=== PATIENT | male | born 1950 | race Caucasian/White ===

== ENCOUNTER 2019-10-04 15:02 | Outpatient (CLI) | payer OTHER, SELFPAY ==
--- NOTE | ~2019-10-04 | CT_ITS ---
EXAMINATION: CT lung screening DATE: 10/04/2019 15:30 INDICATION: History of nicotine dependence TECHNIQUE: Computed tomography (CT) of the chest was performed without intravenous contrast. The dose -length product was 104.39 mGy-cm. Automated exposure control and iterative reconstruction technique were employed. COMPARISON: CT dated 08/16/2018 FINDINGS: No thoracic lymphadenopathy. Heart size normal. No significant pleural or pericardial effus ion. Fatty infiltration of the liver. Mild atherosclerosis. There is emphysema. No endobronchial lesi ons. There is focal peripheral scarring in the right middle lobe, image 69, unchanged no suspicious p ulmonary nodules or masses. No endobronchial lesions. No osteolytic or osteoblastic lesions of the agustin chasidy. Mild thoracic spondylosis. There is diffuse idiopathic skeletal hyperostosis (DISH) of the thora cic spine. . IMPRESSION: 1. Lung-RADS category 1: Negative. Continue annual screening with noncontrast low-dose chest CT in 12 months. Reviewed, dictated and finalized at location A. IMPRESSION: 1. Lung-RADS category 1: Negative. Continue annual screening with noncontrast l ow-dose chest CT in 12 months.
== END 2019-10-04 15:03 | disposition home or self-care (01) ==
LOC: ANHIMG 15:04
PROVIDERS: Visit Provider Internal Medicine
DX: Z12.2 Encounter for screening for malignant neoplasm of respiratory organs (principal); Z87.891 Personal history of nicotine dependence
CPT/HCPCS: G0297

== ENCOUNTER 2019-12-21 06:49 | Outpatient (NON) | payer OTHER, SELFPAY ==
[2019-12-22 01:03] LABS: SARS-CoV-2 RNA PCR Negative
== END 2019-12-21 06:50 ==
LOC: ANHCOVIDDT 06:49
PROVIDERS: Visit Provider Internal Medicine
DX: Z20.828 Contact with and (suspected) exposure to other viral communicable diseases (principal); R05 Cough
CPT/HCPCS: 87635; C9803; U0003

== ENCOUNTER 2020-01-14 10:18 | Outpatient (CLI) | payer OTHER, SELFPAY ==
--- NOTE | ~2020-01-14 | XR_ITS ---
EXAMINATION: XR soft tissue neck DATE: 01/14/2020 10:43 INDICATION: Gastroesophageal reflux disease without esophagitis. TECHNIQUE: 2 views of the neck soft tissues were obtained. COMPARISON: None. FINDINGS: The adenoids, palatine tonsils, epiglottis, prevertebral soft tissues, and airway are bryce l. IMPRESSION: 1. Normal neck soft tissues. Reviewed, dictated and finalized at location B. MECHANIC APPRENTICE
== END 2020-01-14 10:19 | disposition home or self-care (01) ==
LOC: ANHIMG 10:24
PROVIDERS: Visit Provider Internal Medicine
DX: K21.9 Gastro-esophageal reflux disease without esophagitis (principal)
CPT/HCPCS: 70360

== ENCOUNTER 2020-01-18 08:51 | Outpatient (CLI) | payer OTHER, SELFPAY ==
--- NOTE | ~2020-01-18 | XR_ITS ---
EXAMINATION: XR barium swallow modified DATE: 01/18/2020 09:20 INDICATION: Dysphagia. TECHNIQUE: The patient was given barium-containing material of multiple consistencies to swallow by tarcy cheng speech pathologist while I performed fluoroscopy. Dose-area product was 1.117 Gy-cm2. 1.5 minutes fluoroscopy time FINDINGS: Oral Stage: Normal Pharyngeal Phase: Normal Cervical/Esophageal Stage: Normal IMPRESSION: Modified esophagram findings as above. Please refer to the speech therapy report for spec [facility] recommendations. Reviewed, dictated and finalized at Location A. Reviewed, dictated and finalized at location A. E MACHINE HEATER IMPRESSION: Modified esophagram findings as above. Please refer to the speech t herapy report for specific recommendations.
--- NOTE | 2020-01-18 11:09 | STOPEVAL ---
MODIFIED BARIUM SWALLOW EVALUATION: Thank you for referring Lavon Dillard to [facility].? Attending Provider: Phani Allen MD * Outpatient Evaluation Start: 01/18/20 11:02 Freq: Status: Active Protocol: Document 01/18/20 11:02 BECHERERT (Rec: 01/18/20 11:08 BECHERERT [email or web address]) Therapy Assessment Status Assessment Status Assessment Status Evaluation Outpatient Past Medical History Gastrointestinal History Hx Gastroesophageal Reflux Disease Yes Prior Level of Function Prior Swallow Level Prior Intake Method Oral Prior Diet Regular (Level 7 Diet) Prior Liquid Consistency Thin (Level 0 Diet) Pain Assessment Timing of Pain Assessment Timing of Pain Assessment Assessment Self Report Self Report Pain Level 0 Pain Score Pain Score 0: Self Report Modified Barium Swallow Evaluation Recent Swallowing History Reports Dysphagia Yes: excessive belching; soreness in throat/upper chest Onset of Dysphagia 2 weeks ago History of Dysphagia No Other Factors Impacting Dysphagia None History of Pneumonia No Reported Difficult Consistencies Unable to Identify Intake Method Prior to Swallow Oral Evaluation Diet Prior to Swallow Evaluation Regular, Level 7 Liquid Consistency Prior to Swallow Thin (0) Evaluation Consistency Thin Uncontrolled 2 Method of Presentation Straw Oral Preparatory Symptoms None Oral Phase Symptoms None Pharyngeal Phase Symptoms Within Functional Limits Severity of Vallecular Residue None - 0% No Residue Severity of Pyriform Sinus Residue None - 0% No Residue 8 Point Laryngeal Penetration-Aspiration Material Enters the Airway, Scale Remains Above Vocal Folds, is Ejected Cervical/Esophageal Symptoms None Solid Consistency Other Amount cracker Method of Presentation Spoon Oral Preparatory Symptoms None Oral Phase Symptoms None Pharyngeal Phase Symptoms None Severity of Vallecular Residue None - 0% No Residue Severity of Pyriform Sinus Residue None - 0% No Residue 8 Point Laryngeal Penetration-Aspiration Material Does Not Enter Airway Scale Cervical/Esophageal Symptoms None Mixed Consistency Method of Presentation Spoon Oral Preparatory Symptoms None Oral Phase Symptoms None Pharyngeal Phase Symptoms None Severity of Vallecular Residue None - 0% No Residue Severity of Pyriform Sinus Residue None - 0% No Residue 8 Point Laryngeal Penetration-Aspiration Material Does Not Enter Airway Scale Cervical/Esophageal Symptoms None Pureed Consistency Method of Presentation
== END 2020-01-18 08:52 | disposition home or self-care (01) ==
PROVIDERS: Visit Provider Internal Medicine
DX: K21.9 Gastro-esophageal reflux disease without esophagitis (principal)
CPT/HCPCS: 92611

== ENCOUNTER 2020-02-13 08:23 | Outpatient (CLI) | payer OTHER, SELFPAY ==
--- NOTE | ~2020-02-13 | US_ITS ---
US arterial ankle brachial ind INDICATION: Differing leg pressures. Peripheral vascular disease. TECHNIQUE: Segmental pressures and plethysmographic and Doppler waveforms of the brachial and lower e xtremity arteries were obtained. COMPARISON: None. FINDINGS: Right and left brachial artery pressures of 145 mm Hg and 140 mm Hg, respectively, are concordant (no rmal difference <= 30 mmHg). The right ankle-brachial index (AGUSTINA) is 0.99 (normal >= 0.9-1.0). The right great toe-brachial index (TBI) is 0.49 (normal >= 0.60). The left AGUSTINA is 1.17. The left TBI is 0.46. IMPRESSION: 1. Diminished bilateral toe brachial indices consistent with mild peripheral arterial disease. Reviewed, dictated and finalized at location A. NE DIESEL TECHNICIAN IMPRESSION: 1. Diminished bilateral toe brachial indices consistent with mild peripheral ar terial disease.
== END 2020-02-13 08:24 | disposition home or self-care (01) ==
PROVIDERS: Visit Provider Internal Medicine
DX: R68.89 Other general symptoms and signs (principal); R94.39 Abnormal result of other cardiovascular function study
CPT/HCPCS: 93922

== ENCOUNTER 2021-05-18 07:58 | Outpatient (CLI) | payer OTHER, SELFPAY ==
--- NOTE | ~2021-05-18 | XR_ITS ---
EXAMINATION: XR abdomen/kub 1V INDICATION: Left-sided back pain TECHNIQUE: Supine views of the abdomen were obtained on 2 radiographs. COMPARISON: 09/10/2013 FINDINGS: A 7 mm calcification projects in the expected location of the left ureteropelvic junction. Three calcifications measuring up to 3 mm project in the left kidney. Three calcifications measuring up to 2 mm project in the right kidney. There is mild osteoarthritis of the hips. The bowel gas patte rn is normal. IMPRESSION: 1. 7 mm stone projecting in the expected location of the left ureteropelvic junction. 2. Bilateral nephrolithiasis. Reviewed, dictated and finalized at location A. IMPRESSION: 1. 7 mm stone projecting in the expected location of the left ureteropelvic dimas ction. 2. Bilateral nephrolithiasis.
[2021-05-18 09:00] LABS: Appearance Urine Clear (Clear); Bilirubin Urine Negative (Negative); Color Urine Yellow (Yellow); Glucose Urine UA Trace mg/dL (Negative); Ketones Urine Negative (Negative); Leukocyte Esterase Ur Negative LEU/UL (Negative); Nitrate Urine Negative (Negative); Protein Urine Negative (Negative); Urobilinogen Urine 0.2 mg/dL (<2.0); pH Urine 6.5 (5.0-9.0)
[2021-05-18 09:01] LABS: Add Urine Microscopic? YES; Blood Urine Trace-Intact (Negative)
[2021-05-18 09:25] LABS: Bacteria Urine Trace /hpf; Mucus Urine Rare /lpf; RBC Urine 0-2 /hpf (0-2); WBC Urine 0-3 /hpf
== END 2021-05-18 07:59 | disposition home or self-care (01) ==
LOC: ANHIMG 08:01
PROVIDERS: Visit Provider Internal Medicine
DX: M54.50 Low back pain, unspecified (principal); N20.0 Calculus of kidney; N20.1 Calculus of ureter
CPT/HCPCS: 74018; 81001

== ENCOUNTER 2021-05-25 08:46 | Outpatient (CLI) | payer OTHER, SELFPAY ==
--- NOTE | 2021-05-25 09:00 | ECG_ITS ---
Measurements Intervals [place] Rate: 69 P: 58 MO: 183 QRS: 22 QRSD: 149 T: 24 QT: 406 QTc: 437 Interpretive Statements SINUS RHYTHM RIGHT BUNDLE BRANCH BLOCK [120+ ms QRS DURATION, UPRIGHT V1, 40+ ms S IN I/aVL/V4/V5/V6] NONSPECIFIC ST ABNORMALITY BORDERLINE ECG NO PREVIOUS ECG AVAILABLE FOR COMPARISON Electronically Signed On 05-25-2021 11:32:00 CDT by Evans Key M.D.
[2021-05-25 09:39] LABS: Anion Gap 4 mmol/L (8-16); Blood Urea Nitrogen 16 mg/dL (9-20); Calcium 8.7 mg/dL (8.4-10.2); Carbon Dioxide 30 mmol/L (22-30); Chloride 105 mmol/L (98-107); Estimated Glomerular Filt Rate > 60; Glucose 106 mg/dL (65-110); Potassium 4.2 mmol/L (3.4-5.0); Prothrombin Time 12.6 Seconds (11.1-14.7); Sodium 139 mmol/L (137-145)
[2021-05-25 09:40] LABS: Partial Thromboplastin Time 25.5 SECONDS (22.3-36.8)
== END 2021-05-25 08:47 | disposition home or self-care (01) ==
LOC: ANHSURGERY 08:48
PROVIDERS: Anesthesiology; Visit Provider Urology
DX: Z01.818 Encounter for other preprocedural examination (principal); E78.5 Hyperlipidemia, unspecified; N20.1 Calculus of ureter; E11.9 Type 2 diabetes mellitus without complications; R94.31 Abnormal electrocardiogram [ECG] [EKG]
CPT/HCPCS: 36415; 80048; 85610; 85730; 87086; 87088; 93005

== ENCOUNTER 2021-05-29 01:16 | Day surgery (SDC) | payer OTHER, SELFPAY ==
[2021-05-22 09:18] VITALS: BMI 28.5
--- NOTE | 2021-05-22 09:36 | PC.NURSE ---
Report to the Outpatient Waiting Room, entrance under the green pavilion located off [facility], at time _9:30AM on date __05/29/21 . OR Time: ___11:30AM . - You and your visitor will be asked a series of questions to screen for COVID 19 for your protection. - A mask is required within the hospital. Preoperative COVID Testing Requirements: No COVID Test needed if: (proof is required; if not received patient will have Rapid Test prior to entry) - Patient has received COVID Vaccine at least 14 days prior to procedure date or - Patient has positive COVID test result within last 90 days of surgery date. COVID Test needed if above criteria is not met If not COVID vaccinated a COVID test must be conducted within 72 hours of surgery and patient is asked to isolate self from time of testing until procedure. You will go to the [facility] for your COVID testing. The [facility] site is located at the corner of [address] [facility]. You will only be called if COVID results are positive and your surgeon may reschedule your elective surgery date. Patients may have clear liquids (water, carbonated beverages, clear teas, apple juice) until 3 hours prior to surgery with a maximum of 20 ounces. - No food from midnight until time of surgery - Infants may have breast milk until 4 hours before surgery, formula 6 hours prior to surgery. - Children will be allowed to drink immediately following surgery. If applicable, please bring a bottle or sippy cup to assist with drinking. Juice, water, soda, and popsicles are readily available. For infants on formula, please bring formula the day of surgery. Pacifiers are allowed. Take the following medications with a SIP of water the morning of surgery: __NONE Medications to discontinue per physician HOLD ASPIRIN 7 DAYS PRE-OP Date to take last dose____4/15/22 Please no make-up, nail kenyan, hairspray, perfume, deodorant, or body powder the day of surgery. No jewelry (including any body piercings) or valuables the day of surgery, leave them at home. Please take a shower or bath the night before, or the morning of, surgery with an antibacterial soap. Wear comfortable, loose fitting clothing. Children are encouraged to wear pajamas. - Jewelry must be removed prior to entering the operating room. Rings and piercings that are not removed may be cut off. - The hospital will not accept responsibility for valuables. - Please leave all valuables, including medications, at home the day of surgery. If you are going home after surgery, a licensed hazardous materials tanker driver must drive you home. - NO public transportation without another adult. - We recommend that an adult stay with you for 24 hours following discharge. - We also recommend that you do not drive, make important decision, drink alcoholic beverages, or take any drugs that were not prescribed by your health care provider for at least 24 hours after your discharge time. For Pediatric surgeries, we recommend two adults accompany the child home (only one inside the building at this time). One visitor will be allowed to accompany the patient into the hospital. Patients visitor will be instructed to remain with patient at all times or leave the building. We will allow the visitor to come back to the postoperative area when patient is ready. Follow any additional instructions given to you from your surgeon. Telephone instructions given to __PATIENT and asked if any additional questions and then verbalized understanding. Patient advised to call surgeon office or pre surgery nurse liaison [phone] if any additional questions.
--- NOTE | 2021-05-28 13:37 | WPDANESEPPF ---
Anes - Initial Pre Proc Eval Procedure: Operation Date: 05/29/21 10:30 Proposed Procedures p Left Extracorporeal Shock Wave Lithotripsy - Augusto Harrington MD Date/Time: 05/28/21 13:37 Surgeon: Augusto Harrington MD Pre Op Diagnosis: Left Ureteral Stone Patient Data Age: 71 Gender: M Height: 1.73 m Weight: 85 kg Allergies Allergy/AdvReac Type Severity Reaction Status Date / Time No Known Allergies Allergy Verified 05/22/21 09:15 Home Medications Medication Instructions Recorded Confirmed Type aspirin 81 mg tablet,delayed 81 mg PO DAILY 02/25/20 05/22/21 History release metformin 1,000 mg tablet 1,000 mg PO BID #180 tablet 02/28/20 05/22/21 Rx rosuvastatin 40 mg tablet 40 mg PO DAILY #90 tablet 02/28/20 05/22/21 Rx famotidine 20 mg tablet 20 mg PO BID #180 tablet 10/07/20 05/22/21 Rx acetaminophen [Acetaminophen Extra 500 mg PO Q6H PRN 05/22/21 05/22/21 History Strength] hydrocodone-acetaminophen 1 tablet PO Q4-6H PRN 05/22/21 05/22/21 History Patient hx anesthesia problems: none Family hx anesthesia problems: none Results Review: All pre-operative results and documents have been reviewed as part of the pre-operative evaluation. [facility] Past Medical History Medical History (Updated 05/28/21 @ 13:37 by Albin Encarnacion DO) Abnormal ankle brachial index (AGUSTINA) Abnormal EKG BMI 28.0-28.9,adult BMI 29.0-29.9,adult Cough Diabetes type 2, controlled Encounter for routine adult health examination without abnormal findings Encounter for special screening examination for neoplasm of prostate Exposure to COVID-19 virus GERD (gastroesophageal reflux disease) Personal history of nicotine dependence PVD (peripheral vascular disease) Vitamin D deficiency Family History Family History Father Family history of diabetes mellitus in first degree relative Family history of heart disease in male family member before age 55 Diabetes mellitus Family history of cardiovascular disease Social History Social History Smoking packs per day: 1 Smoking cigarettes per day: 20.0 Years smoked: 50 Smoking pack-years: 50.00 Smoking status: Current every day smoker Tobacco type: cigarettes Alcohol intake: never Substance use: never Living arrangements: with family Additional living arrangements comments: Gender identity (if verbalized by the patient): Male Sexual Orientation (if Verbalized by the Patient): Straight or Heterosexual Spiritual care concerns: No Anes - Eval Final PreProcedure Day of Procedure 05/28/21 13:37 Patient weight: overweight Heart: regular rate and rhythm Lungs: clear to auscultation and normal air movement Airway: Mallampati scale class II Neurological: alert and oriented Last oral intake: >/= 8 hours ASA classification: III Emergent: no Anesthetic plan: proceed Anesthesia type and monitoring: general LMA and standard monitoring Results Review: All pre-operative results and documents have been reviewed as part of the pre-operative evaluation. Informed Consent: The patient's anesthetic plan and its attendant risks and benefits were discussed with the patient/family/POA. Questions were solicited and answers provided to the satisfaction of the patient/family/POA.
[2021-05-29] VITALS (7 sets, daily range): BP systolic 128–145; BP diastolic 73–88; PULSE 75–107; RESP 16–20; TEMP 36.4; O2SAT 95–99
--- NOTE | ~2021-05-29 | XR_ITS ---
EXAMINATION: XR abdomen/kub 1V EXAM DATE: 05/29/2021 07:38 INDICATION: ESWL TECHNIQUE: Frontal projection(s) of the abdomen for interpretation. Comparison is made to prior exami nation from . FINDINGS: There is approximately 8 mm stone in expected location of the left ureteropelvic junction w ell visualized. Likely additional small bilateral nephrolithiasis. Mild to moderate bony degenerative changes. Nonobstructive bowel gas pattern. There is no organomegaly. IMPRESSION: Left UPJ stone. Smaller bilateral nephrolithiasis. Reviewed, dictated and finalized at location A.
[2021-05-29] MEDS: LACTATED RINGERS 1,000 ML 30 ML IV CONT ×2 (08:00→10:31)
[2021-05-29 08:29] LABS: Glucose Point of Care 132 mg/dl (65-105)
--- NOTE | 2021-05-29 09:10 | WPDHPUPDATE1 ---
History and Physical Update Update Date/Time: 05/29/21 09:10 History and Physical has been reviewed, including an updated exam of the patient. There are NO changes in the patient's condition. Risks, benefits, and alternatives have been discussed and questions answered. Patient agrees to proceed with procedure. Proceed with lithotripsy of left UPJ calculus
[2021-05-29] MEDS: ceFAZolin 2 GM/D5W 50 ML 2 GM/50 ML BAG IVPB (09:33)
--- NOTE | 2021-05-29 10:08 | W.PM.PROC2 ---
Procedure Note - Detailed Date of Procedure 05/29/21 Pre-op Diagnosis Left Ureteral Stone Post-op Diagnosis Same Procedure Performed Lithotripsy of left ureteral calculus Surgeon Augusto Harrington MD Anesthesia General Description of Procedure Patient is taken to the operative suite correctly identified. Once anesthesia was obtained the stone was localized in both planes. Three thousand shocks were given the stone. Patient tolerated procedure well without any complications and was taken recovery stable condition. He will follow up in 7-10 days with KUB. Drains No Packing No Pathology None sent Complications No immediate complications Condition Stable Disposition PACU
[2021-05-29 10:24] LABS: Glucose Point of Care 119 mg/dl (65-105)
[2021-05-29] MEDS: fentaNYL CITRATE INJ (*CRX) 100 MCG/2 ML VIAL 25 MCG IV PUSH ×2 (10:38→10:42)
== END 2021-05-29 11:45 | disposition home or self-care (01) ==
PROVIDERS: Visit Provider Urology
PROC: (CPT 50590; principal; 2021-05-29 09:30)
DX: N20.1 Calculus of ureter (principal); Z79.82 Long term (current) use of aspirin; Z79.84 Long term (current) use of oral hypoglycemic drugs; E11.9 Type 2 diabetes mellitus without complications; Z86.16 Personal history of COVID-19; K21.9 Gastro-esophageal reflux disease without esophagitis; E55.9 Vitamin D deficiency, unspecified; I73.9 Peripheral vascular disease, unspecified; R94.31 Abnormal electrocardiogram [ECG] [EKG]; F17.210 Nicotine dependence, cigarettes, uncomplicated
CPT/HCPCS: 50590; 36415; 74018; 80048; 82948; 85610; 85730; 87086; 93005; A9270; J0690; J1100; J2405; J2704; J3010; J7120

== ENCOUNTER 2021-06-06 07:22 | Outpatient (CLI) | payer OTHER, SELFPAY ==
--- NOTE | ~2021-06-06 | XR_ITS ---
XR abdomen/kub 1V DATE: 06/06/2021 07:40 INDICATION: Left ureteral calculus follow-up TECHNIQUE: AP rejection, 2 views COMPARISON: 05/29/2021 KUB FINDINGS: There is a linear array of calcified stones at the left ureterovesical junction measuring 1 .5 cm length, the individual stones measuring as much as proxy 4 mm maximal dimension, including the most distal stone. These are apparently fragments from prior left ureteropelvic junction approximatel y 8 mm calcified stone noted on 05/29/2021. At least several calcified calculi of the mid and lower right kidney. IMPRESSION: Left ureterovesical junction [address] Reviewed, dictated and finalized at Location A. Reviewed, dictated and finalized at location A.
== END 2021-06-06 07:23 | disposition home or self-care (01) ==
PROVIDERS: Visit Provider Nurse Practitioner Family
DX: N20.1 Calculus of ureter (principal)
CPT/HCPCS: 74018

== ENCOUNTER 2021-06-13 07:24 | Outpatient (CLI) | payer OTHER, SELFPAY ==
--- NOTE | ~2021-06-13 | XR_ITS ---
EXAMINATION: XR abdomen/kub 1V INDICATION: Left ureteral stone, recent lithotripsy TECHNIQUE: Supine views of the abdomen were obtained on 2 radiographs. COMPARISON: 06/06/2021 FINDINGS: Stones previously described at the left ureterovesicular junction/distal ureter are no long er evident. There is stable punctate right nephrolithiasis. No stones are identified along the expect ed courses of the ureters or within the urinary bladder. There is a phlebolith of the left pelvis. Th e bowel gas pattern is normal. There is moderate osteoarthritis of the hips. IMPRESSION: 1. Interval treatment of previously described left ureterovesicular junction/distal ureteral stones. 2. Right nephrolithiasis. Reviewed, dictated and finalized at location A. IMPRESSION: 1. Interval treatment of previously described left ureterovesicular junction/di stal ureteral stones. 2. Right nephrolithiasis.
== END 2021-06-13 07:25 | disposition home or self-care (01) ==
PROVIDERS: Visit Provider Urology
DX: N20.0 Calculus of kidney (principal)
CPT/HCPCS: 74018

== ENCOUNTER 2021-08-14 06:56 | Outpatient (CLI) | payer OTHER, SELFPAY ==
[2021-08-14 07:53] LABS: Appearance Urine Clear (Clear); Bilirubin Urine Negative (Negative); Blood Urine Negative (Negative); Color Urine Yellow (Yellow); Glucose Urine UA Trace mg/dL (Negative); Ketones Urine Negative (Negative); Leukocyte Esterase Ur Negative LEU/UL (NEGATIVE); Nitrate Urine Negative (Negative); Protein Urine 2+ mg/dL (Negative); Urobilinogen Urine 0.2 mg/dL (<2.0)
[2021-08-14 07:54] LABS: Basophils Absolute Auto 0.1 K/mm3 (0.0-0.1); Basophils Percent Auto 0.8 % (0.2-1.2); Eosinophils Absolute Auto 0.2 K/mm3 (0-0.3); Eosinophils Percent Auto 1.8 % (0-4.4); Hematocrit 45.5 % (42.0-52.0); Immature Granulocyte Absolute 0.03 K/mm3 (0.00-0.031); Immature Granulocyte Percent A 0.4 % (0-0.5); Lymphocytes Absolute Auto 1.23 K/mm3 (0.9-3.2); Lymphocytes Percent Auto 14.5 % (18.3-44.2); Mean Corpuscular Hemoglobin 30.8 pg (26-34); Mean Corpuscular Volume 93.4 fl (80-100); Mean Platelet Volume 10.6 fl (7.4-10.4); Monocytes Absolute Auto 0.6 K/mm3 (0.1-0.6); Monocytes Percent Auto 6.6 % (2.6-8.5); Neutrophils Absolute Auto 6.4 K/mm3 (1.3-6.7); Neutrophils Percent Auto 75.9 % (45.5-73.1); Platelet Count Result 256 k/mm3 (150-375); Red Blood Count 4.87 M/mm3 (4.6-6.20); Red Cell Distribution Width 12.3 % (11.5-14.5); White Blood Count 8.5 K/mm3 (4.5-10.0)
[2021-08-14 07:58] LABS: Hemoglobin A1C 6.1 % (<5.7)
[2021-08-14 08:03] LABS: Alanine Aminotransferase 48 U/L (6-50); Alkaline Phosphatase 64 U/L (38-126); Anion Gap 5 mmol/L (8-16); Aspartate Amino Transferase 38 U/L (17-59); Bilirubin,Total 0.6 mg/dL (0.2-1.3); Blood Urea Nitrogen 14 mg/dL (9-20); Calcium 8.7 mg/dL (8.4-10.2); Carbon Dioxide 25 mmol/L (22-30); Chloride 108 mmol/L (98-107); Cholesterol 153 mg/dL (0-200); Estimated Glomerular Filt Rate > 60; Glucose 136 mg/dL (65-110); HDL Direct 34 mg/dL; Potassium 4.3 mmol/L (3.4-5.0); Sodium 138 mmol/L (137-145); Triglycerides 130 mg/dL (<150)
[2021-08-14 08:09] LABS: Mucus Urine Rare /lpf; RBC Urine 0-2 /hpf (0-2); WBC Urine 0-3 /hpf (0-3)
[2021-08-14 08:14] LABS: LDL Cholesterol Direct 88 mg/dL
[2021-08-14 08:17] LABS: Add Urine Microscopic? YES
[2021-08-14 15:06] LABS: Free T4 Free Thyroxine 1.17 ng/mL (0.78-2.19)
[2021-08-18 21:04] LABS: Apolipoprotein B 98 mg/dL (<90)
== END 2021-08-14 06:57 | disposition home or self-care (01) ==
LOC: ANHLAB 06:58
PROVIDERS: Visit Provider Internal Medicine
DX: E55.9 Vitamin D deficiency, unspecified (principal); E78.5 Hyperlipidemia, unspecified; R68.89 Other general symptoms and signs; Z79.899 Other long term (current) drug therapy; R73.9 Hyperglycemia, unspecified
CPT/HCPCS: 36415; 80053; 80061; 81001; 82172; 82306; 83036; 84439; 84443; 85025

== ENCOUNTER 2021-11-26 07:04 | Emergency (ER) | payer OTHER, SELFPAY ==
--- NOTE | ~2021-11-26 | XR_ITS ---
EXAMINATION: XR knee LT 3V DATE: 11/26/2021 07:49 INDICATION: Twisting injury to left knee with anterior protrusion and discoloration TECHNIQUE: Anteroposterior, oblique and crosstable lateral views of the left knee were obtained COMPARISON: None. FINDINGS: Arcuate sign with nondisplaced avulsion fracture at the proximal tip of the fibula. Alignment is othe rwise normal. No other fractures identified. Soft tissues are unremarkable. Left knee joint effusion. IMPRESSION: 1. Arcuate sign with nondisplaced avulsion fracture at the proximal tip of the fibula. These are freq uently seen in setting of additional internal derangement including anterior or posterior cruciate li gament tears and posterolateral corner injuries which can predispose towards posterolateral instabili ty. Reviewed, dictated and finalized at location A. IMPRESSION: 1. Arcuate sign with nondisplaced avulsion fracture at the proximal tip of the fibula. These are frequently seen in setting of additional internal derangement including anterior or posterior cruciate ligament tears and posterolateral cor ner injuries which can predispose towards posterolateral instability.
[2021-11-26 07:18] VITALS: BP 151/82; PULSE 93; RESP 16; TEMP 36.4; O2SAT 98
--- NOTE | 2021-11-26 07:19 | ED.LOWEXIN ---
HPI - Extremity Injury (Lower) General Chief Complaint: Extremity Injury, Lower Stated Complaint: fall with left leg inury Time Seen by Provider: 11/26/21 07:18 Source: patient Mode of arrival: ambulatory Limitations: no limitations History of Present Illness HPI Narrative: Patient tripped and fell yesterday around noon woke up this morning feeling tightness and discomfort of the left knee. He denies any other complaint. Related Data Home Medications Medication Instructions Recorded Confirmed aspirin 81 mg tablet,delayed 81 mg PO DAILY 02/25/20 08/20/21 release (Adult Aspirin Regimen) acetaminophen 500 mg tablet 500 mg PO Q6H PRN Pain 05/22/21 08/20/21 (Acetaminophen Extra Strength) Allergies Allergy/AdvReac Type Severity Reaction Status Date / Time No Known Allergies Allergy Verified 11/26/21 07:22 Review of Systems Review of Systems: All systems reviewed & are unremarkable except as noted in HPI and below PMFSH Past Medical History Medical History Abnormal ankle brachial index (AGUSTINA) Abnormal EKG BMI 28.0-28.9,adult BMI 29.0-29.9,adult Cough Diabetes type 2, controlled Encounter for routine adult health examination without abnormal findings Encounter for special screening examination for neoplasm of prostate Exposure to COVID-19 virus GERD (gastroesophageal reflux disease) Personal history of nicotine dependence Proteinuria PVD (peripheral vascular disease) Vitamin D deficiency Family History Family History Father Family history of diabetes mellitus in first degree relative Family history of heart disease in male family member before age 55 Diabetes mellitus Family history of cardiovascular disease Social History Social History Smoking packs per day: 1 Smoking cigarettes per day: 20.0 Years smoked: 50 Smoking pack-years: 50.00 Smoking status: Current every day smoker Tobacco type: cigarettes Alcohol intake: never Substance use: never Additional living arrangements comments: Gender identity (if verbalized by the patient): Male Sexual Orientation (if Verbalized by the Patient): Straight or Heterosexual Spiritual care concerns: No Exam Narrative: General appearance: Well-developed, well-nourished Skin: Normal color Head: Normocephalic, nontraumatic Eyes: Clear conjunctiva ENT: Oropharynx normal, ears normal, nose normal Neck: Supple, nontender Chest and respiratory: Airway patent, no respiratory distress, no accessory muscle use Heart: Regular rate/rhythm Abdomen: Soft, nontender, no organomegaly, quiet bowel sounds Vascular: Normal peripheral pulses, normal capillary refill. Musculoskeletal: Left knee exam showed slight swelling anterior laterally, no bruises, no deformity, abrasion distal to left knee Neurologic: Alert and oriented ?3, LINE PALLETIZER is normal as tested, no gross motor deficit Course Consultations Consultation #1: Dr. Lipscomb Knee immobilizer, call office for appointment Date: 11/26/21 Time: 08:29 Vital Signs Vital signs: Vital Signs Temperature 36.4 C L 11/26/21 07:18 Pulse Rate 93 11/26/21 07:18 Respiratory Rate 16 11/26/21 07:18 Blood Pressure 151/82 H 11/26/21 07:18 Pulse Oximetry 98 11/26/21 07:18 Oxygen Delivery Room Air 11/26/21 07:18 Temperature 36.4 C L 11/26/21 07:18 Pulse Rate 93 11/26/21 07:18 Respiratory Rate 16 11/26/21 07:18 Blood Pressure 151/82 H 11/26/21 07:18 Pulse Oximetry 98 11/26/21 07:18 Oxygen Delivery Room Air 11/26/21 07:18 MDM - Extre
== END 2021-11-26 08:54 | disposition home or self-care (01) ==
PROVIDERS: Emergency Provider Emergency Medicine; PCP Internal Medicine
DX: S82.832A Other fracture of upper and lower end of left fibula, initial encounter for closed fracture (principal); K21.9 Gastro-esophageal reflux disease without esophagitis; E11.51 Type 2 diabetes mellitus with diabetic peripheral angiopathy without gangrene; I73.9 Peripheral vascular disease, unspecified; F17.210 Nicotine dependence, cigarettes, uncomplicated; Z79.82 Long term (current) use of aspirin; Z79.84 Long term (current) use of oral hypoglycemic drugs; E55.9 Vitamin D deficiency, unspecified; W01.0XXA Fall on same level from slipping, tripping and stumbling without subsequent striking against object, initial encounter
CPT/HCPCS: 73562; 99283; 99284

== ENCOUNTER → 2021-12-19 08:59 | Outpatient (CLI) | payer OTHER, SELFPAY ==
--- NOTE | ~2021-12-19 | MR_ITS ---
EXAMINATION: MR knee LT wo con DATE: 12/19/2021 09:40 INDICATION: Left knee injury with generalized pain post fall with twisting injury 5 weeks prior TECHNIQUE: Magnetic resonance imaging (MRI) of the left knee was performed without intravenous contra st. Sequences included coronal PD-weighted FSE, coronal PD-weighted FS FSE, sagittal T2-weighted FSE , sagittal PD-weighted FS FSE and axial PD weighted fat saturated FSE. COMPARISON: None. FINDINGS: Medial compartment: There is some medial extrusion of the medial meniscus. Complex tear extending to the superior and inf erior articular surface of the body of the medial meniscus and extending along the free edge and infe rior articular surface at the posterior horn. The posterior horn of the medial meniscus is smaller th an expected however no displaced meniscal flap or meniscal tissue is appreciated which suggests this could be due to either prior partial meniscectomy or chronic degeneration. There is no appreciable ed addis surrounding the periphery of the meniscus which raises the possibility of meniscal tear could be chronic. There is partial thickness chondral fissuring without degenerative subchondral changes along the lateral margin of the anterior weightbearing medial femoral condyle. There is additional partial thickness chondral fissuring along the posterior rim of the medial tibial plateau. Lateral compartment: Lateral meniscus is normal. Articular cartilage is normal. Patellofemoral compartment: Articular cartilage is normal. Ligaments and tendons: There is some increased signal in the anterior cruciate ligament but without evident discontinuity or laxity of the ligament fibers to more specifically suggest tear. Posterior cruciate ligament is norm al. The medial collateral ligament and fibular collateral ligament complex are normal. The extensor m echanism is normal. The visualized medial and lateral hamstring tendons as well as the iliotibial ban d are normal. Fluid: Physiologic amount of fluid in the joint space. No loose osteochondral bodies identified. Osseous/other: Nondisplaced avulsion fracture across the cephalad tip of the proximal head of the fibula involving t he footplate of the intact anterior proximal tibiofibular and fabellofibular ligaments. The intact po sterior inferior tibiofibular ligament is attached to the proximal fibula caudal to the level of the fracture. The fracture fragment also involves a portion of the footplate of the biceps femoris. The f ibular collateral ligament complex appears insert anterior and inferior to the fracture line. The pop liteus muscle and tendon are normal. There appears be thickening and increased signal consistent with at least partial tear of the popliteal fibular and arcuate ligaments which also attach to the small fracture fragment. There is bone marrow edema surrounding a subtle curvilinear low signal intensity trabecular fracture line centered along the medial side of the anterior rim of the lateral tibial plateau and underlying the anterior aspect of the intercondylar eminence. There is also marrow edema associated with a likel y associated very small impaction fracture along the lateral margin of the lateral sulcus of the late ral femoral condyle. There is no corresponding bone contusion or impaction fracture along the posteri or margin of the lateral tibial plateau to suggest an anterior subluxation injury. Marrow edema surro unding a subtle curvilinear likely impaction fracture line underlying the lateral aspect of the antru m of the medial tibial plateau and corresponding bone contusion without fracture at the medial margin of the inferior medial trochlea. The fracture and contusion patterns anteriorly suggest a hyperexten edna injury. Additional nonspecific mild marrow edema along the medial and posterior margins of the m edial tibial plateau which may be related to the
== END ==
PROVIDERS: PCP Internal Medicine; Visit Provider Orthopaedic Surgery
DX: S89.92XA Unspecified injury of left lower leg, initial encounter (principal); M25.562 Pain in left knee; M23.8X2 Other internal derangements of left knee; S82.122A Displaced fracture of lateral condyle of left tibia, initial encounter for closed fracture
CPT/HCPCS: 73721

== ENCOUNTER 2022-01-16 10:59 | Outpatient (CLI) | payer OTHER, SELFPAY ==
--- NOTE | ~2022-01-16 | CT_ITS ---
EXAMINATION: CT lung screening DATE: 01/16/2022 11:34 INDICATION: Personal history nicotine dependence, current smoker with 30 pack year history TECHNIQUE: Computed tomography (CT) of the chest was performed without intravenous contrast. The dose -length product (DLP) was 121.50 mGy-cm. Automated exposure control and iterative reconstruction tech [employer] were employed. COMPARISON: None FINDINGS: There is mild emphysema. There is a 3 mm nodule in the superior segment of the left lower l obe. The lungs are free of acute opacities. No pleural effusion or pneumothorax. No pathologically en larged thoracic lymph nodes are identified. The heart size is normal. Calcified coronary artery ather osclerosis is noted. There is mild bilateral gynecomastia. There are bridging osteophytes at multiple levels in the spine, consistent with diffuse idiopathic skeletal hyperostosis (DISH). IMPRESSION: 1. Lung-RADS category 2: Benign appearance or behavior. Continue annual screening with noncontrast lo w-dose chest CT in 12 months. Reviewed, dictated and finalized at location A. RIBUTION ENGINEER IMPRESSION: 1. Lung-RADS category 2: Benign appearance or behavior. Continue annual screeni ng with noncontrast low-dose chest CT in 12 months.
== END 2022-01-16 11:00 | disposition home or self-care (01) ==
LOC: ANHIMG 11:00
PROVIDERS: PCP Internal Medicine; Visit Provider Internal Medicine
DX: Z12.2 Encounter for screening for malignant neoplasm of respiratory organs (principal); Z87.891 Personal history of nicotine dependence
CPT/HCPCS: 71271

== ENCOUNTER 2022-09-14 08:44 | Outpatient (CLI) | payer OTHER, SELFPAY ==
--- NOTE | ~2022-09-14 | XR_ITS ---
EXAMINATION: XR knee LT 3V DATE: 09/14/2022 09:19 INDICATION: Left knee pain TECHNIQUE: Standing AP, lateral and sunrise views of the left knee were obtained COMPARISON: None. FINDINGS: Alignment is normal. No fracture. Mild joint space narrowing the medial compartment and tiny margina l osteophytes at the patella consistent with at least mild osteoarthritis. Small left knee joint effu edna without layering lipohemarthrosis. Soft tissues are otherwise unremarkable. IMPRESSION: 1. Mild osteoarthritis in the medial and patellofemoral compartments with small left knee joint effus ion. Reviewed, dictated and finalized at location L. IMPRESSION: 1. Mild osteoarthritis in the medial and patellofemoral compartments with small left knee joint effusion.
== END 2022-09-14 08:45 | disposition home or self-care (01) ==
PROVIDERS: PCP Internal Medicine; Visit Provider Internal Medicine
DX: M17.12 Unilateral primary osteoarthritis, left knee (principal)
CPT/HCPCS: 73562

== ENCOUNTER 2022-11-08 08:40 | Outpatient (CLI) | payer OTHER, SELFPAY ==
--- NOTE | ~2022-11-08 | XR_ITS ---
XR shoulder RT min 2V DATE: 11/08/2022 09:04 INDICATION: Right shoulder pain TECHNIQUE: 4 views COMPARISON: None FINDINGS: Dextroscoliosis and diffuse idiopathic skeletal hyperostosis of the thoracic spine. There is degenerative change at the right acromioclavicular joint. No significant abnormal right shou lder soft tissue calcification is noted. No fracture or dislocation, periosteal reaction or bone destruction is detected. IMPRESSION: Degenerative change of the right acromion clavicular joint Dextro scoliosis and diffuse idiopathic skeletal hyperostosis of the thoracic spine Reviewed, dictated and finalized at location B. IMPRESSION: Degenerative change of the right acromion clavicular joint Dextro scoliosis and diffuse idiopathic skeletal hyperostosis of the thoracic s pine
--- NOTE | ~2022-11-08 | XR_ITS ---
XR shoulder LT min 2V DATE: 11/08/2022 09:04 INDICATION: Shoulder pain TECHNIQUE: 4 views of the left shoulder COMPARISON: None FINDINGS: There is levoscoliosis of the upper thoracic spine and diffuse idiopathic skeletal hyperost osis of the thoracic spine. No fracture or dislocation, periosteal reaction or bone destruction of the left shoulder. Inferior sp urring at the left acromion process. No abnormal soft tissue calcification at the left shoulder is no ricarda. IMPRESSION: Inferior spurring of the left acromion Levoscoliosis of upper thoracic spine Diffuse idiopathic skeletal hyperostosis of the thoracic spine Reviewed, dictated and finalized at location B.
== END 2022-11-08 08:41 | disposition home or self-care (01) ==
PROVIDERS: PCP Internal Medicine; Visit Provider Internal Medicine
DX: M25.612 Stiffness of left shoulder, not elsewhere classified (principal); M25.611 Stiffness of right shoulder, not elsewhere classified; M19.011 Primary osteoarthritis, right shoulder; M25.712 Osteophyte, left shoulder; M41.84 Other forms of scoliosis, thoracic region; M48.14 Ankylosing hyperostosis [Forestier], thoracic region
CPT/HCPCS: 73030

== ENCOUNTER → 2022-12-10 12:39 | Outpatient (CLI) | payer OTHER, SELFPAY ==
--- NOTE | ~2022-12-10 | MR_ITS ---
EXAMINATION: MR cervical spine wo con DATE: 12/10/2022 14:28 INDICATION: Right shoulder pain TECHNIQUE: Magnetic resonance imaging (MRI) of the cervical spine was performed without intravenous c ontrast. Sequences included sagittal T2-weighted FSE, sagittal T2-weighted FS FSE, sagittal T1-weight ed FSE, axial MERGE and axial T2-weighted FSE. COMPARISON: None FINDINGS: 1 mm retrolisthesis C3 on C4. Vertebral body heights are normal. Bone marrow signal intensity is no rmal. Mild to moderate disc height loss at C3-C4 and mild disc height loss at C5-C6 and C6-C7. Cord s ignal intensity is normal. The following disc levels are specifically discussed: C2-C3: Annular fissure and small central disc protrusion. There is no uncovertebral joint osteoarthri tis. There is mild bilateral facet joint osteoarthritis. There is mild right neural foraminal stenosi s. There is mild central canal stenosis. C3-C4: Disc is mildly bulging with annular fissure and small central disc extrusion with disc materia l extending up to 4 mm cephalad to the level of the inferior endplate of C3. There is moderate right- sided and severe left-sided uncovertebral joint osteoarthritis. There is mild bilateral facet joint o steoarthritis. There is moderate bilateral neural foraminal stenosis. There is mild central canal ruby nosis with mild indention of the left ventral surface of the cord. C4-C5: Disc is mildly bulging with annular fissure and small left paracentral disc extrusion with dis c material extending up to 3 mm cephalad to the level of the inferior endplate of C4. There is mild b ilateral uncovertebral joint osteoarthritis. There is mild bilateral facet joint osteoarthritis. Ther e is mild bilateral neural foraminal stenosis. There is mild central canal stenosis with mild flatten ing of the ventral surface of the cord. C5-C6: Annular fissure with moderate size central disc extrusion which measures 5 mm AP, 7 mm left to right and 10 mm craniocaudally extending a few millimeter cephalad and caudal to the level of the en dplates. There is moderate bilateral uncovertebral joint osteoarthritis. There is mild right and mode rate left facet joint osteoarthritis. There is moderate bilateral neural foraminal stenosis. There is moderate central canal stenosis measuring 5-6 mm AP in the mid sagittal plane and with indention of the central ventral surface of the cord. C6-C7: Disc is bulging. There is moderate right and severe left uncovertebral joint osteoarthritis. T here is mild bilateral facet joint osteoarthritis. There is moderate right and moderate to severe lef t neural foraminal stenosis. There is mild central canal stenosis with mild indention of the ventral surface of the cord. C7-T1: The disc does not extend beyond the endplate margin. There is no uncovertebral joint osteoarth ritis. There is mild bilateral facet joint osteoarthritis. There is no neural foraminal stenosis. The re is no central canal stenosis. IMPRESSION: 1. Mild cervical spondylosis but with few annular fissures and disc extrusions which contribute to ce ntral canal stenosis, moderate at C5-C6 and mild at a few additional levels. Reviewed, dictated and finalized at location A. IMPRESSION: 1. Mild cervical spondylosis but with few annular fissures and disc extrusions which contribute to central canal stenosis, moderate at C5-C6 and mild at a few additional levels.
--- NOTE | ~2022-12-10 | MR_ITS ---
EXAMINATION: MR shoulder LT wo con DATE: 12/10/2022 14:28 INDICATION: Right shoulder pain TECHNIQUE: Magnetic resonance imaging (MRI) of the right shoulder was performed without intravenous c ontrast. Sequences included axial PD-weighted FS FSE, coronal oblique PD-weighted FS FSE, coronal obl ique T2-weighted FS FSE, sagittal PD-weighted FS FSE, and sagittal T1-weighted SE. COMPARISON: None. FINDINGS: Coracoacromial arch: The acromion undersurface is minimally curved in morphology (type I-II). Small subacromial spurs at t he acromial insertion of the normal coracoacromial ligament. Moderate acromioclavicular osteoarthriti s. Rotator cuff: Moderate supraspinatus and mild infraspinatus tendinopathy without discrete tear. Mild subscapularis tendinopathy without tear. The teres minor tendon is normal. There is however moderate fatty atrophy of the teres minor muscle belly which is of indeterminate etiology. No evident impinging lesions seen at the quadrilateral space along the course of the axillary nerve to explain the muscular atrophy. N onspecific mild increased fluid signal at the distal subscapularis muscle belly without fatty atrophy . Biceps tendon, glenoid labrum and glenohumeral cartilage: Long head of the biceps tendon is normal. There is a linear tear extending obliquely across the base of the 9:00-7:00 position of the posterior inferior glenoid labrum. Remainder of the labrum is normal . Glenohumeral cartilage is normal. Fluid: Physiologic amount of fluid in the glenohumeral joint and biceps tendon sheath. No loose osteochondr al bodies. Small amount of fluid in the subacromial/subdeltoid bursa consistent with mild bursitis. Bones: Normal marrow signal with no edema, fracture or abnormal marrow replacing process. IMPRESSION: 1. Mild to moderate rotator cuff tendinopathy without discrete tendon tear 2. Moderate fatty atrophy of the teres minor muscle belly which is of indeterminate etiology with no evident impinging mass along the course of the axillary nerve. 3. Tear at the posterior inferior glenoid labrum. 4. Moderate acromioclavicular osteoarthritis with mild underlying subacromial/subdeltoid bursitis. Reviewed, dictated and finalized at location A. IMPRESSION: 1. Mild to moderate rotator cuff tendinopathy without discrete tendon tear 2. Moderate fatty atrophy of the teres minor muscle belly which is of indetermi miles etiology with no evident impinging mass along the course of the axillary n erve. 3. Tear at the posterior inferior glenoid labrum. 4. Moderate acromioclavicular osteoarthritis with mild underlying subacromial/s ubdeltoid bursitis.
--- NOTE | ~2022-12-10 | MR_ITS ---
EXAMINATION: MR shoulder RT wo con DATE: 12/10/2022 14:27 INDICATION: Right shoulder pain TECHNIQUE: Magnetic resonance imaging (MRI) of the right shoulder was performed without intravenous c ontrast. Sequences included axial PD-weighted FS FSE, coronal oblique PD-weighted FS FSE, coronal obl ique T2-weighted FS FSE, sagittal PD-weighted FS FSE, and sagittal T1-weighted SE. COMPARISON: None. FINDINGS: Coracoacromial arch: The acromion undersurface is curved in morphology (type II). The coracoacromial ligament is normal. M oderate to severe acromioclavicular osteoarthritis. Rotator cuff: Moderate supraspinatus, infraspinatus and subscapularis tendinopathy without discrete tear. Teres min or tendon is normal. Normal rotator cuff muscle bulk and signal. Biceps tendon, glenoid labrum and glenohumeral cartilage: Long head of the biceps tendon is normal. Linear fluid signal intensity tear extending across the bas e of the 7:30-9:30 position of the posterior glenoid labrum. More amorphous appearing mild increased signal consistent with degeneration of the 11:00-o'clock position of the superior glenoid labrum. Mil d partial-thickness cartilage loss with smooth chondral surface along the medial the inferomedial asp ect of the humeral head and at the cephalad third of the glenoid. Fluid: Small amount of fluid at the long head biceps tendon sheath which is disproportionate to the minimal effusion at the right glenohumeral joint consistent with mild bicipital tenosynovitis. No loose osteo chondral bodies. Small amount of fluid in the subacromial/subdeltoid bursa consistent with mild bursi tis. Bones: Normal marrow signal with no edema, fracture or abnormal marrow replacing process. IMPRESSION: 1. Moderate supraspinatus, infraspinatus and subscapularis tendinopathy without tear. 2. Mild right glenohumeral osteoarthritis with linear tear at the posterior glenoid labrum and less w ell-defined mild degeneration at the superior labrum. 3. Moderate to severe acromioclavicular arthritis with mild Subacromial/subdeltoid bursitis. 4. Mild bicipital tenosynovitis. Reviewed, dictated and finalized at location A. IMPRESSION: 1. Moderate supraspinatus, infraspinatus and subscapularis tendinopathy without tear. 2. Mild right glenohumeral osteoarthritis with linear tear at the posterior gle noid labrum and less well-defined mild degeneration at the superior labrum. 3. Moderate to severe acromioclavicular arthritis with mild Subacromial/subdeltoid bursitis. 4. Mild bicipital tenosynovitis.
== END ==
PROVIDERS: PCP Internal Medicine; Visit Provider Internal Medicine
DX: M25.512 Pain in left shoulder (principal); M25.511 Pain in right shoulder; M43.02 Spondylolysis, cervical region; S46.891A Other injury of other muscles, fascia and tendons at shoulder and upper arm level, right arm, initial encounter; M19.011 Primary osteoarthritis, right shoulder; M75.51 Bursitis of right shoulder; M75.21 Bicipital tendinitis, right shoulder; S43.432A Superior glenoid labrum lesion of left shoulder, initial encounter; M19.012 Primary osteoarthritis, left shoulder
CPT/HCPCS: 72141; 73221

== ENCOUNTER 2023-05-10 09:23 | Outpatient (CLI) | payer OTHER, SELFPAY ==
--- NOTE | ~2023-05-10 | CT_ITS ---
CT Scan of the Chest without Contrast: Clinical Indication: Lung cancer screening, nicotine dependence Technique: Contiguous sections were acquired throughout the chest without intravenous contrast. Dose reduction technique was used on this scan by utilizing automated exposure control and iterative recon struction technique. The dose-length product (DLP) was 108.16 mGy-cm. Findings: There is no evidence of any significant mediastinal, hilar or axillary lymphadenopathy. The mediastin al soft tissues appear normal. There is no evidence of pleural or pericardial effusion. The lungs are clear. No pulmonary nodules or infiltrates are noted. There is mild to moderate emphyse ma. Images through the upper abdomen reveal no abnormalities. Impression: Lung RADS 1: Negative. 12 month follow-up screening CT advised. Mild to moderate emphysema. Reviewed, dictated and finalized at [facility]. Impression: Lung RADS 1: Negative. 12 month follow-up screening CT advised. Mild to moderate emphysema.
== END 2023-05-10 09:24 ==
PROVIDERS: PCP Internal Medicine; Visit Provider Internal Medicine
DX: Z12.2 Encounter for screening for malignant neoplasm of respiratory organs (principal); J43.9 Emphysema, unspecified; Z87.891 Personal history of nicotine dependence
CPT/HCPCS: 71271

== ENCOUNTER 2023-05-18 11:15 | Outpatient (RCR) | payer OTHER, SELFPAY ==
--- NOTE | 2023-04-12 14:05 | OTOPEVAL1 ---
Assessment and note entered by LUIGI Kee/Drake, CHT Evaluation Information Assessment Status Evaluation Diagnosis trigger finger of left hand, bilateral carpal tunnel syndrome Subjective Information Patient began experiencing bilateral shoulder and arm pain a few months ago. Patient went to pain management and he received a shot in the cervical area. He also finished a round of PT for the back/ neck/shoulders. He continues to do the PT exercises religiously . He states his arms feel a lot better, now just the hands bother him. Patient's EMG shows mild carpal tunnel syndrome in bilateral hands. He has been wearing wrist splints for 2 months. He also is reporting some triggering of the left middle finger. 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 He is right handed. Patient reports pain with thumb extension and intermittent aching pain in bilateral hands. Reporting no paresthesia. Reported Pain Level Pain Score 0: Self Report Additional Pain Score Comments No pain at rest. Patient reports he experiences sudden jolts of pain with different movements/ activities. Assessment OT Clinical Summary Patient referred to OT with dx of trigger finger and bilateral carpal tunnel syndrome. He presents with reports of generalized hand weakness and tightness with end range of motion. Upper limb tension tests for median, ulnar, and radial nerves were negative. Carpal compression, Phalen's, and reverse Phalen's tests were all negative. He was instructed in ROM and fryer operator strengthening HEP. Continued follow up indicated for use of modalities, manual therapy, HEP progression, and splinting PRN to facilitate optimal functional hand use for ADLs and work tasks. Plan of Care Interventions Therapeutic Exercise,Manual Therapy,Therapeutic Activities,Hot Pack/Cold Pack,Ultrasound,Paraffin OT Services Indicated Yes Treatment Frequency and 1x/week for 4 visits Duration These treatments will address the objective and functional deficits as defined above. The patient will be advanced safely and appropriately in order for the patient to progress towards his/her prior level of function. Additional exercises will be introduced and as well as a comprehensive home exercise program upon discharge, if needed, ?to ensure carryover of functional gains achieved in the cli
--- NOTE | 2023-04-12 14:05 | OPREHPOC ---
Outpatient Therapy Plan of Care This is a Multidisciplinary Plan of Care that may contain components documented by all disciplines (PT, OT, and ST.) OT Problem 1 OT Problem #1 Knowledge Deficit OT Goal 1 Goal 1. Patient to be independent with instructed materials. Target Visit 5 OT Problem 2 OT Problem #2 Pain OT Goal 1 Goal 1. Patient to report no instances of pain in bilateral wrists/thumbs during ADLs. Target Visit 5 OT Problem 3 OT Problem #3 Impaired Strength OT Goal 1 Goal 1. Increase right hand electrician outside strength to 72 lbs. 2. Increase left hand electrician outside strength to 58 lbs. Target Visit 5
--- NOTE | 2023-05-04 15:08 | PCOTNOTE ---
The patient treatment was not able to be completed on Monday 05/01 due to Therapist being out of the building. Will plan to continue treatment per plan of care. Patient rescheduled 05-05.
--- NOTE | 2023-05-06 11:09 | PCOTNOTE ---
The patient treatment was not able to be completed patient called and stated he had a family emergency. Unable to reschedule due to being end of week. Patient has Re-evaluation next week on the 05-12-23
--- NOTE | 2023-05-18 11:57 | OTOPDC ---
Assessment and note entered by Cristiano San, OTR/Drake, DANISHT OT D/C Summary 05/18/23 Diagnosis trigger finger of left hand, bilateral carpal tunnel syndrome Subjective Information Patient reports noticing improved flexibility and strength of his hands. He reports intermittent generalized achy pain in the joints of his hands. Reports no functional limitations on a day to day basis, no pain with ADLs. States he has some soreness after using a drill hanging shelves. Reporting no paresthesia. Reported Pain Level Pain Score 0: Self Report Assessment OT Clinical Summary Patient presents today for OT reassessment after a month of therapy. Therapy has focused on utilizing thermal modalities for improved flexibility and reduced pain, ROM, and strengthening. He verbalizes improved functional hand use for every day tasks, gripping, and lifting. He states he has some intermittent stiffness for which heat and ROM helps. Patient is independent with all materials. Discharging patient with HEP. Plan of Care OT Services Indicated No
== END 2023-05-18 12:50 | disposition home or self-care (01) ==
LOC: ANHGOSHOT 11:15
PROVIDERS: PCP Internal Medicine
DX: M65.332 Trigger finger, left middle finger (principal); G56.03 Carpal tunnel syndrome, bilateral upper limbs
CPT/HCPCS: 97018; 97110; 97167

== ENCOUNTER 2023-11-27 08:10 | Emergency (ER) | payer OTHER, SELFPAY ==
--- NOTE | ~2023-11-27 | XR_ITS ---
AP and oblique views of the left ribs, and PA chest radiograph Clinical History: Pain Findings: No rib fracture is seen. Osseous alignment is anatomic. Lungs are clear, without focal cons olidation or pleural effusion. Cardiomediastinal contour is within normal limits. Soft tissues are un remarkable. Impression: No rib fracture is seen. Clear lungs. Reviewed, dictated and finalized at [facility]. Impression: No rib fracture is seen. Clear lungs.
--- NOTE | 2023-11-27 08:12 | ED.BACK ---
HPI - Back Pain/Injury General Chief Complaint: Back Pain/Injury Stated Complaint: Back Injury From Fall Time Seen by Provider: 11/27/23 08:34 Source: patient, RN notes reviewed and old records reviewed Mode of arrival: ambulatory Limitations: no limitations History of Present Illness HPI Narrative: 73-year-old male presents to the [facility] with complaints left lower posterior rib pain, patient states that he was getting out of a golf cart yesterday, stepped on a curb, slipped fell backwards landing between the golf cart and the curb. Believes that he hit his ribs on the curb. No bruising or swelling noted to the area, tender mitchell tetanus noted to palpation. Patient took Tylenol last night Onset (ago): day(s) (1) Treatments prior to arrival: heat therapy and acetaminophen Related Data Home Medications Medication Instructions Recorded Confirmed aspirin 81 mg tablet,delayed 81 mg PO DAILY 02/25/20 11/27/23 release (Adult Aspirin Regimen) acetaminophen 500 mg tablet 500 mg PO Q6H PRN Pain 05/22/21 11/27/23 (Acetaminophen Extra Strength) cholecalciferol (vitamin D3) 50 50 mcg PO DAILY 08/05/23 11/27/23 mcg (2,000 unit) capsule Allergies Allergy/AdvReac Type Severity Reaction Status Date / Time No Known Allergies Allergy Verified 11/27/23 08:25 Review of Systems Review of Systems: All systems reviewed & are unremarkable except as noted in HPI and below Constitutional: Constitutional: Reports no additional constitutional complaints ENT: Reports system reviewed and no additional complaints, except as documented Cardiovascular: Cardiovascular: Reports no additional cardiovascular complaints, Denies chest pain and Denies dyspnea Respiratory: Respiratory: Reports no additional respiratory complaints, Denies chest congestion, Denies cough and Denies dyspnea Musculoskeletal: Musculoskeletal: Reports as per HPI and Reports back pain (Left lower posterior ribs) Integumentary/Breasts: Skin/Breast: Reports system reviewed and no additional complaints, except as [facility]u [facility] Past Medical History Medical History Abdominal pain of unknown cause Abnormal ankle brachial index (AGUSTINA) Abnormal EKG Bilateral hand pain Bilateral knee pain Bilateral shoulder pain BMI 25.0-25.9,adult BMI 26.0-26.9,adult BMI 27.0-27.9,adult BMI 28.0-28.9,adult BMI 29.0-29.9,adult Cough Diabetes type 2, controlled Dyshidrotic eczema Encounter for preventive health examination Encounter for routine adult health examination with abnormal findings Encounter for routine adult health examination without abnormal findings Encounter for special screening examination for neoplasm of prostate Exposure to COVID-19 virus GERD (gastroesophageal reflux disease) Hip pain, bilateral Hip pain, right Laceration of left index finger Muscle spasm of back Personal history of nicotine dependence Pre-diabetes Proteinuria PVD (peripheral vascular disease) RBBB (right bundle branch block) Skin ulceration Trigger finger Vitamin D deficiency Surgical History Surgical History Kidney stone 2021 Family History Family History Father Family history of diabetes mellitus in first degree relative Family history of heart disease in male family member before age 55 Diabetes mellitus Family history of cardiovascular disease Social History Social History Smoking packs per day: 1 Smoking cigarettes per day: 20.0 Years smoked: 50 Smoking pack-years: 50.00 Smoking status: Current every day smoker Tobacco type: cigarettes Alcohol intake: never Substance use: never Lack of Transportation: No Lack of Food: Never True Current Housing: I Have Housing Concerned About Future Housing: No Difficulty Paying Gas/Electric Bills: N
[2023-11-27 08:26] VITALS: BP 145/74; PULSE 68; RESP 16; TEMP 36.7; O2SAT 98
== END 2023-11-27 09:33 | disposition home or self-care (01) ==
PROVIDERS: Emergency Provider Nurse Practitioner; PCP Internal Medicine
DX: S20.222A Contusion of left back wall of thorax, initial encounter (principal); W01.0XXA Fall on same level from slipping, tripping and stumbling without subsequent striking against object, initial encounter; E11.9 Type 2 diabetes mellitus without complications; K21.9 Gastro-esophageal reflux disease without esophagitis; I73.9 Peripheral vascular disease, unspecified; E55.9 Vitamin D deficiency, unspecified; F17.210 Nicotine dependence, cigarettes, uncomplicated
CPT/HCPCS: 71101; 99213; G0463

== ENCOUNTER 2023-11-30 07:13 | Outpatient (CLI) | payer OTHER, SELFPAY ==
--- NOTE | ~2023-11-30 | XR_ITS ---
XR ribs LT 2V Ordering provider: Phani Allen MD History: . R07.81 - Pleurodynia FALL X 1 WK AGO ATTN MID LT TO LOW SWEL . Comparison: None. FINDINGS: BONES: fracture of the left seventh, eighth and 9 ribs seen anteriorly. Clinical correlation advised. LEFT LUNG: No effusions or infiltrates. No pneumothorax. SOFT TISSUES: Normal. IMPRESSION: Fracture of the left seventh, eighth and ninth ribs anteriorly on. Reviewed, dictated and finalized at location A.
== END 2023-11-30 07:14 | disposition home or self-care (01) ==
PROVIDERS: PCP Internal Medicine; Visit Provider Internal Medicine
DX: S22.42XA Multiple fractures of ribs, left side, initial encounter for closed fracture (principal); W19.XXXA Unspecified fall, initial encounter; R07.81 Pleurodynia
CPT/HCPCS: 71100

== ENCOUNTER 2024-06-11 08:37 | Outpatient (CLI) | payer OTHER, SELFPAY ==
--- NOTE | ~2024-06-11 | US_ITS ---
Limited ABDOMINAL ULTRASOUND (Doppler ultrasound interrogation techniques used as needed for this exa m.) Ordering provider: Phani Allen MD History: . K76.0 - Fatty (change of) liver, not elsewhere classified . Comparison: None. FINDINGS: PANCREAS: Normal echotexture and size of the visualized portions. PORTAL VEIN: Hepatopedal flow demonstrated. LIVER: Normal size and increased echotexture. No focal hepatic lesions or perihepatic fluid collectio ns are identified. BILIARY DUCTS: No intra or extrahepatic biliary dilation. Common bile duct measures 5 mm in diameter which is normal for patient's age. GALLBLADDER: Normal. No stones, sludge, gallbladder wall thickening or pericholecystic fluid. Negati ve sonographic Polk's sign. FREE FLUID: None visualized within the upper abdomen. IMPRESSION: Fat infiltration of the liver. Otherwise, normal limited abdominal ultrasound. Reviewed, dictated and finalized at location A.
--- NOTE | ~2024-06-11 | CT_ITS ---
CT Scan of the Chest without Contrast: Clinical Indication: Lung cancer screening, nicotine dependence Technique: Contiguous sections were acquired throughout the chest without intravenous contrast. Dose reduction technique was used on this scan by utilizing automated exposure control and iterative recon struction technique. The dose-length product (DLP) was 103.35 mGy-cm. COMPARISON: 05/10/2023 Findings: There is no evidence of any significant mediastinal, hilar or axillary lymphadenopathy. The mediastin al soft tissues appear normal. There is no evidence of pleural or pericardial effusion. The lungs are clear. No pulmonary nodules or infiltrates are noted. There is moderate emphysema. Images through the upper abdomen reveal no abnormalities. Impression: Lung RADS 1: Negative. 12 month follow-up screening CT advised. Reviewed, dictated and finalized at location . Impression: Lung RADS 1: Negative. 12 month follow-up screening CT advised.
== END 2024-06-11 08:38 | disposition home or self-care (01) ==
LOC: GOSHIMG 08:37
PROVIDERS: PCP Internal Medicine; Visit Provider Internal Medicine
DX: Z12.2 Encounter for screening for malignant neoplasm of respiratory organs (principal); Z87.891 Personal history of nicotine dependence; K76.0 Fatty (change of) liver, not elsewhere classified
CPT/HCPCS: 71271; 76705